=== PATIENT | male | born 1960 | race Caucasian/White ===

== ENCOUNTER 2018-08-27 03:07 | Emergency (ER) | payer SELFPAY, MEDICAID ==
[2018-08-27] MEDS: morphine 10 MG INJ IM (04:52)
[2018-08-27] MEDS: predniSONE 20 MG TAB PO (04:52)
[2018-08-27] MEDS: VALACYCLOVIR 500 MG TAB PO (04:54)
== END 2018-08-27 05:29 | disposition home or self-care (01) ==
LOC: E/R 03:07
DX: B02.9 Zoster without complications (principal); R40.2142 Coma scale, eyes open, spontaneous, at arrival to emergency department; R40.2362 Coma scale, best motor response, obeys commands, at arrival to emergency department; R40.2252 Coma scale, best verbal response, oriented, at arrival to emergency department; Z79.84 Long term (current) use of oral hypoglycemic drugs
CPT/HCPCS: 96372; 99284-25